=== PATIENT | male | born 1955 | race Two or more races ===

== ENCOUNTER 2022-01-14 13:13 | Outpatient (CLI) | payer OTHER | END 2022-01-14 13:18 | disposition home or self-care (01) | LOC: PPH VACUNA 13:13 | PROVIDERS: ATTEND Emergency Medicine Pediatric Emergency Medicine | DX: Z23 Encounter for immunization (principal) ==

== ENCOUNTER 2022-10-07 06:13 | Emergency (ER) | payer OTHER ==
[~2022-10-07] VITALS: Ht 165.1 cm; Wt 68.0 kg
== END 2022-10-07 10:12 | disposition home or self-care (01) ==
LOC: ER 06:13
DX: L02.512 Cutaneous abscess of left hand (principal); L08.9 Local infection of the skin and subcutaneous tissue, unspecified

== ENCOUNTER → 2023-01-14 | Outpatient (CLI) | payer OTHER | END | disposition home or self-care (01) | LOC: PPH VACUNA | PROVIDERS: ATTEND Emergency Medicine Pediatric Emergency Medicine | DX: Z23 Encounter for immunization (principal) ==

== ENCOUNTER → 2023-03-04 | Emergency (ER) | payer OTHER ==
[~2023-03-04] VITALS: Ht 165.1 cm; Wt 71.2 kg
[2023-03-04 08:07] LABS: HEMATOCRIT 45.1 % (39.0-48.0); HEMOGLOBIN 15.3 g/dL (13-16.00); MEAN CELL VOLUME 84.7 fL (80.0-100.00); MEAN CORPUSCULAR HEMOGLOBIN 28.8 pg (27.00-32.0); PLATELET COUNT 322 K/uL (150-450); RED BLOOD COUNT 5.33 M/uL (4.00-6.00); RED CELL DISTRIBUTION WIDTH 14.1 % (11.5-14.5)
[2023-03-04 08:30] LABS: CALCIUM 9.7 mg/dL (8.5-10.1); CREATININE SERUM 0.93 mg/dL (0.70-1.30); GFR 80.8; POTASSIUM 3.58 mEq/L (3.5-5.1)
[2023-03-04 09:17] LABS: PH,URINE 7.5 (5.0-8.0); URINE APPEARANCE Clear; URINE BILIRRUBIN Negative (NEGATIVE); URINE BLOOD Negative; URINE COLOR Dark Yellow; URINE GLUCOSE Negative (NEGATIVE); URINE LEUKOCYTE Negative; URINE NITRATE Negative; URINE PROTEIN 30 (NEGATIVE); URINE UROBILINOGEN 0.2 E.U./dl
[2023-03-04 09:22] LABS: URINE BACTERIA 8.8 uL (0.0-1933); URINE EPITHELIAL CELLS 2.4 uL (0.0-38.8); URINE WBC 7.8 uL (0.0-23.2)
== END | disposition home or self-care (01) ==
LOC: ER 05:35
PROVIDERS: General Practice
DX: R42 Dizziness and giddiness (principal); I10 Essential (primary) hypertension

== ENCOUNTER 2023-04-28 11:36 | Emergency (ER) | payer OTHER ==
[~2023-04-28] VITALS: Ht 160 cm; Wt 72.6 kg
[2023-04-28 12:27] LABS: HEMATOCRIT 38.7 % (39.0-48.0); HEMOGLOBIN 12.8 g/dL (13-16.00); MEAN CELL VOLUME 83.3 fL (80.0-100.00); MEAN CORPUSCULAR HEMOGLOBIN 27.6 pg (27.00-32.0); MEAN CORPUSCULAR HGB CONC 33.2 g/dl (32.0-36.0); PLATELET COUNT 301 K/uL (150-450); RED BLOOD COUNT 4.65 M/uL (4.00-6.00); RED CELL DISTRIBUTION WIDTH 13.7 % (11.5-14.5)
[2023-04-28] MEDS ORDERED: ALBUTEROL1.25 MG/3 IH (13:33)
[2023-04-28] MEDS ORDERED: ZITHROMAX500 MG PO (13:33)
[2023-04-28] MEDS ORDERED: TUSNEL LIQUID178 ML PO (13:33)
== END 2023-04-28 13:39 | disposition home or self-care (01) ==
LOC: ER 11:36
PROVIDERS: General Practice
DX: J40 Bronchitis, not specified as acute or chronic (principal); R05.9 Cough, unspecified; Z20.822 Contact with and (suspected) exposure to COVID-19

== ENCOUNTER 2023-06-02 09:48 | Emergency (ER) | payer OTHER ==
[~2023-06-02] VITALS: Ht 165.1 cm; Wt 71.2 kg
[~2023-06-02 09:48] MED LIST: ALBUTEROL1.25 MG/3 IH; TUSNEL LIQUID178 ML PO; ZITHROMAX500 MG PO
== END 2023-06-02 11:26 | disposition home or self-care (01) ==
LOC: ER 09:48
DX: L02.414 Cutaneous abscess of left upper limb (principal)

== ENCOUNTER 2024-02-08 05:21 | Emergency (ER) | payer OTHER ==
[~2024-02-08] VITALS: Ht 165.1 cm; Wt 71.2 kg
[2024-02-08] MEDS ORDERED: HYDROCODONE/CHLORPHEN P-STIREX 5 ML ML PO STA (07:18)
[2024-02-08 07:47] LABS: HEMATOCRIT 37.6 % (39.0-48.0); HEMOGLOBIN 12.8 g/dL (13-16.00); MEAN CELL VOLUME 83.1 fL (80.0-100.00); MEAN CORPUSCULAR HEMOGLOBIN 28.4 pg (27.00-32.0); MEAN CORPUSCULAR HGB CONC 34.1 g/dl (32.0-36.0); PLATELET COUNT 317 K/uL (150-450); RED BLOOD COUNT 4.53 M/uL (4.00-6.00)
== END 2024-02-08 09:22 | disposition home or self-care (01) ==
LOC: ER 05:21
DX: B34.9 Viral infection, unspecified (principal); Z20.822 Contact with and (suspected) exposure to COVID-19

== ENCOUNTER 2024-03-07 05:43 | Emergency (ER) | payer OTHER ==
[~2024-03-07] VITALS: Ht 170.2 cm; Wt 71.2 kg
[2024-03-07 08:42] LABS: HEMATOCRIT 39.5 % (39.0-48.0); HEMOGLOBIN 13.6 g/dL (13-16.00); MEAN CELL VOLUME 83.5 fL (80.0-100.00); MEAN CORPUSCULAR HEMOGLOBIN 28.7 pg (27.00-32.0); MEAN CORPUSCULAR HGB CONC 34.4 g/dl (32.0-36.0); PLATELET COUNT 390 K/uL (150-450); RED BLOOD COUNT 4.72 M/uL (4.00-6.00); RED CELL DISTRIBUTION WIDTH 14.5 % (11.5-14.5)
[2024-03-07 09:10] LABS: ALBUMIN 4.6 gm/dL (3.4-5.0); BILIRUBIN TOTAL 0.68 mg/dL (0.3-1.2); CALCIUM 9.7 mg/dL (8.5-10.1); CREATININE SERUM 1.24 mg/dL (0.70-1.30); GFR 57.8; GLOBULINA 4.3 G/DL (2.4-3.5); POTASSIUM 3.75 mEq/L (3.5-5.1); TOTAL PROTEIN 8.9 gm/dL (6.4-8.2)
[2024-03-07 12:04] VITALS: BP 125/75; O2SAT 96
== END 2024-03-07 12:05 | disposition home or self-care (01) ==
LOC: ER 05:45
PROVIDERS: General Practice
DX: R60.0 Localized edema (principal)